=== PATIENT | male | born 1970 | race Caucasian/White ===

== ENCOUNTER → 2016-07-11 | Outpatient (CLI) | payer OTHER ==
[~2016-07-11] MED LIST: ALLEGRA ALLERG180 MG PO; ANASPAZ0.125 MG SL; APAP500 PO; ATIVAN0.5 MG PO; BACLOFEN 10MG T10 M1 PO; BACLOFEN20 MG PO; BACTRIM DS TAB1 EACH PO; BENZOCAINE 10%; BISACODYL SUPP10 MG RE; BUDEPRION SR150 MG PO; CALCIUM ANTACI400 MG PO; CHOLESTYRAMINE P4 GM PO; CLARITIN10 M2 PO; COLACE100 MG; DUONEB 2.5-0.5 M3 ML INH; ENABLEX15 MG PO; FLEET ENEMA118 ML RC; FLEXERIL; FLOMAX PO; FLOMAX0.4 MG PO; FLONASE 0.05%50 MCG NASAL; GABLOFEN IT; HYDRALAZINE 2525 MG PO; HYDROCODONE-AP1 EAC6 PO; INTRATHECAL MED; LEVAQUIN 500 M500 M7 PO; LIPITOR10 MG PO; LOPRESSOR25 PO; MIRALAX17 G1 PO; MIRALAX255 GM PO; MOBIC7.5 MG PO; MS CONTIN15 MG; MSL20MG/ML PO; NEXIUM40 MG PO; NORVASC5 MG PO; NYSTATIN 1100000 U/M; OXYCODONE-ACET1 EACH PO; PRINIVIL20 MG; PSYLLIUM; REGULOID POWDE; RESTORIL30 MG PO; SENNA8.6 MG PO; THICK-IT1 EACH; TOPROL XL25 MG PO; TRAMADOL 50 MG50 MG; TRAMADOL 50 MG50 MG PO; TRIAMCINOLONE A80 G2 TOP; VENTOLIN HFA 1818 GM; VITAMIN A & D OI2 OZ; ZYRTEC10 M2 PO; [UNRECOGNIZED DRUG - CODE] INTRATHECA; [UNRECOGNIZED DRUG - OTHER] IT; [UNRECOGNIZED DRUG - REMARK] TP
--- NOTE | ~2016-07-11 | HPC ---
[address] [address] PAIN MANAGEMENT CONSULTATION Name: TATIANA ROSADOJalen Ann Room #: REG ANDERSON Fitzpatrick#: [id number] Admission: 07/11/16 Attend Phys: Amilcar Velasco DO Discharge: Date of : 66 Report #: [id number] THIS REPORT FOR: //name// CC: [facility] physician/PCP Amilcar Velasco The patient is a 45-year-old gentleman with cerebral palsy, neuropathic pain, intrathecal pump for his spasticity. Last seen in the pain clinic on 04/03/[address] Becker. Pump was refilled and increased 7% at that time. Returns to the pain clinic today for pump refill indicating that he wishes the pump increased. I will increase to another 5%. PROCEDURE: After informed consent was obtained. The patient moved his electric chair in a more recumbent position lowering the back. The skin overlying the pump was cleansed with ChloraPrep. Sterile drape was applied using [employer] refill kit. The pump was accessed, aspirated residual contents was approximately 3 mL. I refilled 40 mL of baclofen 4000 mcg per mL and morphine 600 mcg per mL. The injectate was generally instilled. Frequent aspiration showed easy return. No visual swelling or erythema at the site was noted. Pump was reprogrammed to deliver 5% increase final infusion being 1579.9 mcg of baclofen/day with concurrent increase in morphine. New refill date is 10/15/2016. The patient was discharged in good and stable condition after the needle was removed. The area was cleansed, Band-Aids applied. The patient is requesting that we increase his morphine concentration at next refill. I will refer to Dr. Becker may consider increasing the morphine to 800 mcg per mL. This may enable a little higher concentration of opiate analgesics without increasing the baclofen load. <ELECTRONICALLY SIGNED> By: Amilcar Velasco DO 07/14/16 1228 [id number] [id number] Amilcar Velasco DO /nt
[2016-07-11 14:18] VITALS: BP 132/85
== END | disposition home or self-care (01) ==
LOC: PAIN 07:12
DX: G80.9 Cerebral palsy, unspecified (principal); M79.2 Neuralgia and neuritis, unspecified

== ENCOUNTER → 2016-10-16 | Outpatient (CLI) | payer OTHER ==
[~2016-10-16] MED LIST changes: +IRON325 PO; +LISINOPRIL40 MG PO; +NITROFURANTOIN100 MG PO; +WELLBUTRIN XL150 MG PO
--- NOTE | ~2016-10-16 | HPC ---
[facility] [place] [address] PAIN MANAGEMENT CONSULTATION Name: JUAN ROSADO Marissa Room #: REG ANDERSON Fitzpatrick#: [id number] Admission: 10/16/16 Attend Phys: Amilcar Velasco, DO Discharge: Date of : 66 Report #: [id number] THIS REPORT FOR: //name// CC: JAMAL Velasco The patient is a 45-year-old gentleman, has an intrathecal pump for chronic spasticity. Last pump refill was actually done by myself on 07/11/2016. The patient was requesting that we increase his morphine concentration. I deferred to Dr. Becker who has ordered today's injectate with an increase in the morphine concentration . He presents to pain clinic today for intrathecal pump refill. Current injectate includes baclofen at 4000 mcg per mL and morphine at [address] Becker has ordered the new refill to include baclofen 4000 mcg per mL and morphine increased approximately 40% to 1 mg per mL. Current baclofen infusion is 1579 mcg a day with morphine at 236 mcg a day. With baclofen being the "driving" agent, the new infusate will give him baclofen 1597 mcg a day with morphine increased from 236-395 mcg a day. I did have the discussion with the patient today about ongoing concerns. He notes that he seems to be having diminished efficacy near the end of his refill cycles. I did spend some time reviewing with him the mechanism by which the Medtronic pump works, there is significant compression in the holding chamber and a small pinch roller controlling the rate at which the injectate is infused through the intrathecal catheter. Studies suggest that with increased pressure after the initial refill, the pump may deliver a slight increase overall at beginning of the cycle and as the reservoir tends to empty with less "driving pressure," the infusate rate may decrease somewhat. Indeed, especially with a 40 mL Medtronic pump we do tend to see larger residuals than predicted, hence the pump certainly is delivering a little under what we expect and again, the patient is noting what many patients have noted, that the pump seems to be a little bit less "effect" near the end of the refill cycle. Nonetheless, we refilled the pump today and did make the aforementioned change in the concentration, there is about a 28-hour bridge bolus. The patient should start to get the higher morphine concentration delivered Thursday around 5:30 p.m. I suggested that he contact Dr. Becker next week if he feels that we need to increase or lower the pump. I did also suggest that he use oral baclofen, perhaps last week or 2 prior to the next pump refill. REFILL PROCEDURE: After written informed consent was obtained, the patient lowered the back of his electric chair, the pump in the left lower quadrant was identified. Skin overlying was cleansed. Of note, there is a little concerning thinning of the skin over the superior lateral aspect of the pocket. There is no skin breakdown noted. Skin wheal with Xylocaine was raised. Using a Medtronic refill kit, the pump was accessed, aspirated residual contents. Again, expected residual volume was 2.3 mL, I withdrew about 4 mL. Pump was then refilled with 40 mL of new injectate containing baclofen 4000 mcg per mL [address] [address] PAIN MANAGEMENT CONSULTATION Name: JUAN ROSADO Room #: REG ANDERSON Fitzpatrick#: [id number] Admission: 10/16/16 Attend Phys: Amilcar Velasco DO Discharge: Date of : 66 Report #: [id number] and morphine 1 mg per mL. Frequent aspiration showed easy refill. Visual inspection showed no swelling or erythema at the site. The patient reported no change in sensation. Needle was removed, the area was cleansed, and Band-Aid was applied. New rate was set with baclofen continuing at 1597.9 mcg a day and morphine increased from 236.98-395 mcg a day. New reservoir date is 01/20/2017. Discharged in good and stable condition. <ELECTRONICALLY SIGNED> By: Amilcar Velasco DO 10/17/16 1308 0755 1227 Amilcar Velasco DO /nt
[2016-10-16 13:01] VITALS: BP 134/81
== END | disposition home or self-care (01) ==
LOC: PAIN 07:30
DX: G89.29 Other chronic pain (principal); M25.673 Stiffness of unspecified ankle, not elsewhere classified

== ENCOUNTER → 2017-01-19 | Outpatient (CLI) | payer OTHER ==
--- NOTE | ~2017-01-19 | HPC ---
[facility] [address] [place] [address] PAIN MANAGEMENT CONSULTATION Name: TATIANA ROSADOJalen Ann Room #: REG ANDERSON Fitzpatrick#: [id number] Admission: 01/19/17 Attend Phys: Amilcar Velasco DO Discharge: Date of : 66 Report #: [id number] THIS REPORT FOR: //name// CC: JAMAL Velasco The patient is very pleasant 46-year-old gentleman being treated for chronic spasticity status post spinal cord trauma in the distant past. I actually refilled his pump last time 10/16/2016. Returns to pain clinic today for intrathecal pump refill. He seems to be doing well per the patient. Current pump infusion is baclofen 1579.9 mcg a day and morphine fairly low dose 0.395 mg today. PROCEDURE NOTE: After written informed consent was obtained, the patient lowered the back of his electric chair. Skin overlying the pump in the left lower quadrant was cleansed with ChloraPrep. Using a [employer] refill kit and sterile drape, I access the pump, aspirated approximately 4 mL of injectate and refilled 40 mL of new injectate containing baclofen 4000 mcg per mL and morphine 1 mg per mL. Frequent aspiration showed good return. The site remained unremarkable. No swelling or erythema was noted at the pocket. Needle was removed. The area was cleansed, Band-Aids applied. The pump was reprogrammed to deliver the current rate without change, new refill date is 04/25/2017. We will have the patient follow up with Dr. Kali Becker at that time. <ELECTRONICALLY SIGNED> By: Amilcar Velasco DO 01/21/17 0801 1215 1305 Amilcar Velasco DO /nt
== END ==
LOC: PAIN 06:41
DX: Z45.1 Encounter for adjustment and management of infusion pump (principal); G80.1 Spastic diplegic cerebral palsy; F41.8 Other specified anxiety disorders; Z88.0 Allergy status to penicillin; Z88.8 Allergy status to other drugs, medicaments and biological substances; Z79.899 Other long term (current) drug therapy

== ENCOUNTER → 2017-04-23 | Outpatient (CLI) | payer OTHER ==
[~2017-04-23] MED LIST changes: +ALENDRONATE SOD70 MG PO
--- NOTE | ~2017-04-23 | HPC ---
[facility] [address] [place] [address] PAIN MANAGEMENT CONSULTATION Name: JUAN ROSADO Room #: REG [facility] Amari#: [id number] Admission: 04/23/17 Attend Phys: Amilcar Velasco DO Discharge: Date of : 66 Report #: [id number] THIS REPORT FOR: //name// CC: JAMAL Velasco DATE OF SERVICE: 04/23/2017 Followup visit for management of intrathecal infusion pump with refill and reprogramming session. The patient is here today with caregiver. He lives in a penitentiary with 1 other person. We talked about his function and his activity and he is really doing quite well. He was last seen in the pain clinic by Dr. Velasco who refilled his pump in October. We have about 150 days in between refills. His spasticity is well controlled. The pump seems to be functioning adequately. It is 59 months SUNG. There was some concern earlier, but I think we are doing fine now. The reservoir today was consistent with the medication that was withdrawn. PHYSICAL EXAMINATION: He is in his wheelchair, has new earring! , we joked while he was in the office. He is able to communicate by blinking and answering yes or no and also has a communication board, but we did not use it today. Spasticity is reasonably well controlled. His blood pressure 140/92, heart rate 70. His BMI was not taken today since we did not get him out of his chair and his pump was refilled while he was in his chair. IMPRESSION: 1. Spasticity related to cerebral palsy. 2. Management of intrathecal infusion pump with refill and reprogramming. 3. Hypertension. 4. Quadriplegia due to cerebral palsy. PROCEDURE: Refill and reprogramming of intrathecal infusion. This patient was placed in a lawn chair position in his wheelchair. I was able to access the pump in that position. Skin was prepped with ChloraPrep. Skin anesthetized. A 22-gauge non-coring needle advanced in the pump. Old medication removed and discarded. We expected 4 mL and received exactly that back in the syringe. This was discarded appropriately. The pump was then refilled with baclofen and morphine combination reprogrammed to provide a daily dose of baclofen 1580 mcg per day, morphine 0.4 mg per day. Low reservoir alarm date is 93 days on 07/25/2017. [address] [address] PAIN MANAGEMENT CONSULTATION Name: RANJANADRIANNEInezJUAN Room #: REG CLJalen Fitzpatrick#: [id number] Admission: 04/23/17 Attend Phys: Amilcar Velasco DO Discharge: Date of : 66 Report #: [id number] Followup visit is planned at that time, no other changes in medication. <ELECTRONICALLY SIGNED> By: Kali Becker MD 04/29/17 1551 1620 0501 Kali Becker MD /estefany
[2017-04-23 11:45] VITALS: BP 140/92
== END ==
LOC: PAIN 06:42
DX: Z45.1 Encounter for adjustment and management of infusion pump (principal); G80.1 Spastic diplegic cerebral palsy; G80.0 Spastic quadriplegic cerebral palsy; I10 Essential (primary) hypertension; Z88.0 Allergy status to penicillin; Z88.1 Allergy status to other antibiotic agents; Z79.899 Other long term (current) drug therapy

== ENCOUNTER → 2017-10-26 | Outpatient (CLI) | payer OTHER ==
[~2017-10-26] MED LIST changes: -APAP500 PO; +KEFLEX500 M1 PO; +NORCO 10-325 T1 EACH PO; +PROZAC20 MG PO; +TYLENOL EXTRA500 MG PO
--- NOTE | ~2017-10-26 | HPC ---
[facility] [address] [place] [address] PAIN MANAGEMENT CONSULTATION Name: JUAN ROSADO Room #: REG TOSHAJalen Fitzpatrick#: [id number] Admission: 10/26/17 Attend Phys: Kali Becker MD Discharge: Date of : 66 Report #: [id number] THIS REPORT FOR: //name// CC: JAMAL Becker DATE OF SERVICE: 10/26/2017 Followup visit for management of intrathecal infusion pump providing baclofen and low-dose morphine. The patient is here today for refill of his intrathecal pump. Last refill was in April. Since he was last here, he has had an aspiration pneumonia and has been in the hospital for recovery. At that time, felt it was no longer safe for him to take oral nutrition and feeding gastrostomy was placed. He also has a suprapubic catheter also placed during that hospitalization. He seems to have recovered nicely, has no problems. He has had no difficulty with breathing at this time. The patient and I communicated by nods and eye blink. He also has a communication board, although I did not use it with him today. His caregiver is with him today who answers most of the questions. She says he has been doing reasonably well. No adjustment in intrathecal medications will be performed today. MEDICATIONS: All medications on the electronic medical record were reviewed and reconciled. Please refer to that electronic documentation. ALLERGIES: Reviewed as well. Interval change noted above. Pain score today is a 5, mostly in the right hip. It has improved with the use of his pump and he is not currently receiving any oral medications. PHYSICAL EXAMINATION: He is pleasant, nonverbal gentleman with cerebral palsy. He is in a wheelchair. He is able to control the wheelchair independently. His blood pressure is 125/80, heart rate is 107. Respirations are 14. BMI was not checked. Spasticity is modest. He has contractures noted in the lower extremities and upper extremities. IMPRESSION: 1. Spasticity secondary to cerebral palsy. 2. Management of intrathecal infusion pump infusing baclofen and morphine. 3. Hypertension. [facility] [address] [place] [address] PAIN MANAGEMENT CONSULTATION Name: ALONZOJUAN Room #: REG [facility] Amari#: [id number] Admission: 10/26/17 Attend Phys: Kali Becker MD Discharge: Date of : 66 Report #: [id number] PROCEDURE: Refill and reprogram of intrathecal infusion pump. Skin was prepped with ChloraPrep and skin was anesthetized. A 22-guage Tuohy epidural needle advanced into the pump. Old medication removed and discarded. Expected volume at 3 mL, retrieved volume 5 mL. Pump was refilled with baclofen and morphine and reprogramming at baclofen 1580 mcg, morphine 0.39 mg per day. His SUNG is 53 months, reservoir volume 39.5 and his next low reservoir alarm date is 01/28/2018. Programming information was double checked by myself and the nurse. Program copy was given to the patient's caregiver and he was discharged in good condition. Followup visit is scheduled for January. By: 1221 0125 Kali Becker MD /nt
[2017-10-26 09:59] VITALS: BP 140/78
== END | disposition home or self-care (01) ==
LOC: PAIN 07-23 06:55
DX: Z45.1 Encounter for adjustment and management of infusion pump (principal); G80.1 Spastic diplegic cerebral palsy; I10 Essential (primary) hypertension; Z98.890 Other specified postprocedural states; Z88.0 Allergy status to penicillin; Z88.8 Allergy status to other drugs, medicaments and biological substances; Z79.891 Long term (current) use of opiate analgesic; Z79.899 Other long term (current) drug therapy

== ENCOUNTER → 2018-01-25 | Outpatient (CLI) | payer OTHER ==
--- NOTE | ~2018-01-25 | HPC ---
[facility] [address] [place] [address] PAIN MANAGEMENT CONSULTATION Name: JUAN ROSADO Room #: REG [facility]#: [id number] Admission: 01/25/18 Attend Phys: Kali Becker MD Discharge: Date of : 66 Report #: [id number] THIS REPORT FOR: //name// CC: JAMAL DELGADO MD Physician staff Kali Becker DATE OF SERVICE: 01/25/2018 Followup visit for refill of intrathecal infusion pump. The patient has cerebral palsy and has an intrathecal pump providing baclofen and morphine. He is here today for routine refill of his intrathecal pump. The summer has gone well. He has been able to get outside a little bit with his electric chair. He and I by nods, eye blink, and the pump was refilled without challenge or complication. He reports that he has pain mostly in the right hip. I may increase his intrathecal morphine slightly at next visit. PHYSICAL EXAMINATION: GENERAL: Pleasant, nonverbal gentleman with cerebral palsy, in a wheelchair. He is able to control the chair with his right hand. VITAL SIGNS: His blood pressure today is 120/69, heart rate 93. BMI was not listed. IMPRESSION: 1. Cerebral palsy with spasticity. 2. Intrathecal infusion pump for baclofen and morphine. PROCEDURE: Skin was prepped with ChloraPrep. Skin anesthetized. A 22-gauge non-coring needle advanced in the pump. Old medication removed and discarded. Expected volume was 3, we got 6 mL. This is a little high for even a 40 mL pump. Pump was refilled with baclofen and morphine and reprogrammed with no change. His daily baclofen dose is high at 1580 mcg per day and his morphine dose at 0.4. Followup visit will be scheduled in the Pain Clinic in about 3 months. By: 1522 0502 Kali Becker MD /nt
[2018-01-25 11:15] VITALS: BP 120/69
== END | disposition home or self-care (01) ==
LOC: PAIN 07:45
DX: Z45.1 Encounter for adjustment and management of infusion pump (principal); G80.1 Spastic diplegic cerebral palsy; Z79.891 Long term (current) use of opiate analgesic; Z88.0 Allergy status to penicillin; Z88.8 Allergy status to other drugs, medicaments and biological substances; Z79.899 Other long term (current) drug therapy

== ENCOUNTER → 2018-04-26 | Outpatient (CLI) | payer OTHER ==
--- NOTE | ~2018-04-26 | HPC ---
[facility] [address] [place] [address] PAIN MANAGEMENT CONSULTATION Name: JUAN ROSADO [facility] [id number] Admission: 04/26/18 Attend Phys: Kali Becker MD Discharge: Date of : 66 Report #: [id number] THIS REPORT FOR: //name// CC: JAMAL Torres Physician staff Kali Becker DATE OF SERVICE: 04/26/2018 Followup visit for refill of intrathecal infusion pump. The patient is here today with caregiver. He drove in through the snow from [place] to have his intrathecal pump refill that has a combination of baclofen and morphine. He is doing okay, although he has been a bit drowsy. He has been on the same dose of medication in his pump as far back as I can see. In 2013, we may have increased him a bit from 1300 mcg of baclofen up to 14. He is on very low dose morphine at less than 0.5 mg a day. He is also accommodated to those doses as well. He is nonverbal, in a wheelchair and has severe spasticity. He communicates by using a board, which allows him to write sentences. We had a short discussion today about the catheter in his back. PQRS review shows him to be pleasant, nonverbal 47-year-old with severe cerebral palsy. He has marked contractions. He is confined to his wheelchair. He complains of joint pain and surely has arthritic deformities throughout multiple joints with his contractures. He is on no blood thinners. He does not use tobacco or alcohol. He is not on an opioid agreement. He is not a fall risk and has a fulltime caregiver. All medications have been reviewed and reconciled. Some of his drowsiness may be due to the increases in temazepam and cyclobenzaprine that have been given recently to him to help with sleep. Blood pressure is 125/65 and heart rate 80. IMPRESSION: 1. Cerebral palsy with marked spasticity and contractions. The patient is wheelchair bound and nonverbal. 2. Chronic intractable pain. 3. Management with refill and reprogramming of intrathecal infusion pump. PROCEDURE: Skin was prepped with ChloraPrep and anesthetized. A 22-gauge non-coring needle advanced into the pump, old medication removed and discarded per protocol. Medication anticipated was 3.6 and we retrieved 5 mL and not [address] [address] PAIN MANAGEMENT CONSULTATION Name: JUAN ROSADO Room #: REG CLJalen Fitzpatrick#: [id number] Admission: 04/26/18 Attend Phys: Kali Becker MD Discharge: Date of : 66 Report #: [id number] unusual for a 40 mL pump. The pump was then refilled with a combination of baclofen and morphine and reprogramming session performed daily dose of baclofen 1580 mcg per day, morphine 0.4 mg per day. Refill interval is about 3 months and we will see him back around 's 2018. No oral medications were ordered. No other changes were made. Completed paperwork for the nursing facility regarding his pump refill. By: [id number] Kali Becker MD /nt
[2018-04-26 12:03] VITALS: BP 123/73
== END | disposition home or self-care (01) ==
LOC: PAIN 07:13
DX: Z45.1 Encounter for adjustment and management of infusion pump (principal); G80.1 Spastic diplegic cerebral palsy; G89.29 Other chronic pain; M19.90 Unspecified osteoarthritis, unspecified site; J45.909 Unspecified asthma, uncomplicated; E78.5 Hyperlipidemia, unspecified; Z79.891 Long term (current) use of opiate analgesic; Z88.0 Allergy status to penicillin; Z88.8 Allergy status to other drugs, medicaments and biological substances; Z79.899 Other long term (current) drug therapy; F41.9 Anxiety disorder, unspecified; Z87.19 Personal history of other diseases of the digestive system

== ENCOUNTER → 2018-07-29 | Outpatient (CLI) | payer OTHER ==
[~2018-07-29] MED LIST changes: +TRAZODONE HCL50 MG PO
--- NOTE | ~2018-07-29 | HPC ---
[facility] [address] [place] [address] PAIN MANAGEMENT CONSULTATION Name: JUAN ROSADO Room #: REG [facility].#: [id number] Admission: 07/29/18 Attend Phys: Kali Becker MD Discharge: Date of : 66 Report #: [id number] THIS REPORT FOR: //name// CC: JAMAL DELGADO MD Physician staff Kali Becker DATE OF SERVICE: 07/29/2018 REASON FOR VISIT: Followup visit for management of intrathecal infusion pump for spasticity and chronic pain and cerebral palsy. HISTORY OF PRESENT ILLNESS: The patient is here today for refill of his intrathecal infusion pump. He also complains that he is having significant pain in his knees. He has severe cerebral palsy, is nonverbal. He spends his days in the wheelchair. The legs have become contracted due to his limited mobility and spasticity in any movement of the knees causes a sharp shooting pain. He is already taking intrathecal morphine and I felt today that he would benefit from cortisone injections. We will perform those with his agreement today. I can perform these, I think safely, without fluoroscopic guidance and we will use a small needle to decrease any risk of bleeding. I reviewed all medications. He is on no blood thinners. He is arthritic throughout his extremities with contractions. He is a fall risk and requires a caregiver time lock expert to help with mobility. He is on no oral opioid medications. PHYSICAL EXAMINATION: GENERAL: He is pleasant, alert and oriented. He communicates by blinking his eyes and answers to questions and has a communication board for more lengthy nonverbal communication. VITAL SIGNS: His weight is 156 pounds. His blood pressure 136/89, heart rate 88 and respirations 18. MUSCULOSKELETAL: Spasticity and contractures noted in the upper and lower extremities. He uses his chin to control his wheelchair and can move his chair nearly any direction with good control. Does not move his arms or his legs. Tenderness is noted bilaterally in each knee with complaints of pain with pressure below the patella. He scores his pain as 6-7. IMPRESSION: 1. Cerebral palsy with spasticity and contractions. 2. Arthritic pain, bilateral knee. 3. Management of intrathecal pump with refill and reprogramming. PROCEDURE #1: Refill and reprogramming. Skin was prepped with ChloraPrep. Skin anesthetized and a 22-gauge non-coring needle advanced in the pump. [facility] [address] [place] [address] PAIN MANAGEMENT CONSULTATION Name: JUAN ROSADO Room #: REG ANDERSON Fitzpatrick#: [id number] Admission: 07/29/18 Attend Phys: Kali Becker MD Discharge: Date of : 66 Report #: [id number] medication removed and discarded. Pump refilled with baclofen 4000, morphine 1.5 and reprogrammed. His daily dose of baclofen is high at 1500 mcg. Morphine is at 0.4 mg per day. I will increase this slightly for him in next visit to aid with pain in his knees. PROCEDURE #2: Bilateral knee injections with triamcinolone and bupivacaine. Skin was prepped first on the left knee and using the lateral approach and subpatellar, I advanced a 27-gauge needle gently into the knee joint without any encounter of bone or cartilage. After negative aspiration, gently injected a total of 3 mL of 0.5% bupivacaine mixed with 40 mg of triamcinolone. The procedure was then repeated on the right. He tolerated the procedure well and was observed for a short time and discharged to his care with his caregiver back to his home. There were no complications with any of the procedures provided today. I have seen him back in the pain clinic in about 5 months. By: [id number] Kali Becker MD /nt
[2018-07-29 12:36] VITALS: BP 136/89
--- NOTE | 2018-07-29 12:54 | NUR ---
Pain Clinic Assessment: 1. History of Osteoarthritis: Left Lower Extremity Left Upper Extremity Right Lower Extremity Right Upper Extremity History of Rheumatoid Arthritis: 2. Height: ft. in. cm. Weight: 156.0 lb. oz. 70.761 kg. Patient's BMI: 3. Vital Signs: BP: 136/89 Pulse: 88 Resp: 12 Temp: 02 Sat: 100 ECG Mon: 4. Pain Intensity: 7 5. Fall Risk: Dizziness: N Needs help standing or walking: Y Fallen in the last 3 months: N Fall risk comments: 6. Patient on Blood Thinner: None 7. History of Hypertension: Y 8. Opioid Therapy greater than 6 weeks: N Opiate Contract Signed: 9. Risk Assessment Tool Provided: 10. Functional Assessment Tool: 11. Recreational Drug Use: Never Drug Type: Tobacco Use: Never Smoker Tobacco Type: Amount or Packs/day: How Many Years: Alcohol Use: No Frequency: Quant:
== END | disposition home or self-care (01) ==
LOC: PAIN 07-22 10:34
DX: M17.0 Bilateral primary osteoarthritis of knee (principal); Z45.1 Encounter for adjustment and management of infusion pump; G89.29 Other chronic pain; G80.1 Spastic diplegic cerebral palsy; Z79.891 Long term (current) use of opiate analgesic; Z88.0 Allergy status to penicillin; Z88.8 Allergy status to other drugs, medicaments and biological substances; Z79.899 Other long term (current) drug therapy

== ENCOUNTER → 2018-10-28 | Outpatient (CLI) | payer OTHER ==
--- NOTE | ~2018-10-28 | HPC ---
[facility] [address] [place] [address] PAIN MANAGEMENT CONSULTATION Name: JUAN ROSADO Room #: REG ANDERSON Fitzpatrick#: [id number] Admission: 10/28/18 ������������������ Attend Phys: Kali Becker MD Discharge: ������������������ Date of : 66 Report #: [id number] THIS REPORT FOR: //name// CC: JAMAL DELGADO Physician staff Kali Becker DATE OF SERVICE: 10/28/2018 Followup visit for management of intrathecal infusion pump. The patient returns to pain clinic today for refill and reprogramming with intrathecal infusion pump. He was apparently hospitalized up in [place], [place]. It sounds to me like he may have had some urosepsis. He was poorly responsive and was having fluctuations in his blood pressure. His caregiver described the events to me today. Has often happened the intrathecal pump was either implicated or felt to be potentiating some of his symptoms and they decreased his intrathecal infusion pump dramatically. The patient is on a high dose of medication, which we have maintained steadily without adjustment. Because of his ability to tolerate the medication and because of this forced change, we have been able to then assess the medication drop now over about one month. He is doing fine. His baclofen dose is now down to 885 mcg per day with morphine dose 0.2 mg per day. He does not seem to be much worse for the dramatic drop. It is only 0.2 mg difference in morphine, but it is quite a bit of change in the baclofen. I am actually glad to see that the dose has been well tolerated and I think we will keep him at that level today. On PQRS, this is a very pleasant 47-year-old with severe and debilitating cerebral palsy. He is nonverbal. He is in a wheelchair. He has severe diffuse joint contractions and arthritis. His BMI is felt to be under 20, which is normal for him. We did not weigh him in his wheelchair today. His pain intensity score is 4 today. Communicates with eye blinking with a board. He needs all help with transfers. He is a fall risk only from the standpoint of if he is handled without care. He is on no blood thinners. He has a history of hypertension. He is on no opioids other than that in his pump. He denies use of tobacco or alcohol. PHYSICAL EXAMINATION: He is pleasant, nonverbal gentleman with cerebral palsy. His blood pressure 120/78, heart rate 92. He has diffuse contractures. Pump is in the left lower abdomen. IMPRESSION: 1. Cerebral palsy with severe contractures and chronic intractable pain. [address] [address] PAIN MANAGEMENT CONSULTATION Name: JUAN ROSADO [id number] Admission: 10/28/18 ������������������ Attend Phys: Kali Becker MD Discharge: ������������������ Date of : 66 Report #: [id number] 2. Management of intrathecal infusion pump with refill and reprogramming. 3. Arthritic pain, bilateral knees. He has had injections, which he felt were not so helpful. PROCEDURE: Refill and reprogramming of intrathecal infusion pump. Skin was prepped with ChloraPrep. Skin anesthetized and a 22-gauge non-coring needle advanced into the pump. Old medication removed and discarded per protocol. Pump refilled with baclofen and morphine and reprogrammed. With the current concentration and his new programming, he has about six months of medication in his pump. His daily dose on discharge: Baclofen 885 mcg, morphine mg per day. I did, in the presence of the patient, fill out paperwork for [facility]. This I attached to the programming information, which I provided for the patient. [id number] time is 25 minutes including consultation with nursing staff in addition to the refill of his intrathecal infusion pump. ��������������������������������������������� ���������������������������������������� By: ��������������������������������������������� [id number] [id number] Kali Becker MD /nt
[2018-10-28 14:18] VITALS: BP 120/78
--- NOTE | 2018-10-28 15:06 | NUR ---
Pain Clinic Assessment: 1. History of Osteoarthritis: Left Lower Extremity Left Upper Extremity Right Lower Extremity Right Upper Extremity History of Rheumatoid Arthritis: 2. Height: ft. in. cm. Weight: 125.0 lb. oz. 56.700 kg. Patient's BMI: 3. Vital Signs: BP: 120/78 Pulse: 92 Resp: 12 Temp: 02 Sat: 100 ECG Mon: 4. Pain Intensity: 4 5. Fall Risk: Dizziness: N Needs help standing or walking: Y Fallen in the last 3 months: N Fall risk comments: 6. Patient on Blood Thinner: None 7. History of Hypertension: Y 8. Opioid Therapy greater than 6 weeks: N Opiate Contract Signed: 9. Risk Assessment Tool Provided: 10. Functional Assessment Tool: 11. Recreational Drug Use: Never Drug Type: Tobacco Use: Never Smoker Tobacco Type: Amount or Packs/day: How Many Years: Alcohol Use: No Frequency: Quant:
== END | disposition home or self-care (01) ==
LOC: PAIN 06:59
DX: Z45.1 Encounter for adjustment and management of infusion pump (principal); M19.90 Unspecified osteoarthritis, unspecified site; I10 Essential (primary) hypertension; G89.29 Other chronic pain; G80.9 Cerebral palsy, unspecified; Z88.0 Allergy status to penicillin; Z88.8 Allergy status to other drugs, medicaments and biological substances; Z79.899 Other long term (current) drug therapy; Z98.890 Other specified postprocedural states

== ENCOUNTER → 2019-04-14 | Outpatient (CLI) | payer OTHER ==
--- NOTE | ~2019-04-14 | HPC ---
[facility] [address] [address] PAIN MANAGEMENT CONSULTATION Name: JUAN ROSADO Room #: REG ANDERSNO Amari#: [id number] Admission: 04/14/19 Attend Phys: Kali Becker MD Discharge: Date of : 66 Report #: [id number] THIS REPORT FOR: //name// CC: JAMAL DELGADO Physician staff Kali Becker DATE OF SERVICE: 04/14/2019 Followup visit for management of intrathecal infusion pump for spasticity related to cerebral palsy. The patient returns to pain clinic today for refill of his baclofen pump, which also includes morphine. It had been dropped dramatically in micrograms during the hospitalization. We left it at the 50% level at his last refill. He would like to have an adjustment upwards today. He feels that his pain and spasticity are no longer controlled as effectively as before. We will avoid adjusting it too aggressively. PQRS REVIEW: 1. Positive for diffuse arthropathy and arthritis. He is in multiple contractures throughout his body 2. Osteoarthritis involving almost all joints in the upper and lower extremities. 3. BMI is less than 20. 4. Blood pressure 139/74, heart rate is 98. 5. Pain intensity 7/10. 6. He is a fall risk and needs help with all movement. 7. No blood thinning medication. 8. He has a history of hypertension, under treatment. 9. He is on no opioid agreement. 10. Low risk for addiction. 11. Functional assessment score is not obtained. 12. He denies use of tobacco or alcohol. PHYSICAL EXAMINATION: GENERAL: Pleasant gentleman. He is aphasic. He is in a wheelchair. He communicates with eye blinking and has a nice sense of humor. VITAL SIGNS: As noted. Contractions are noted throughout. Spasticity is significant in the lower extremities with difficulty with leg extension. 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 PROCEDURE: Refill and reprogramming intrathecal infusion pump. Skin prepped with ChloraPrep. A 22-gauge non-core needle advanced in the pump. Old medication removed and discarded. Pump refilled under protocol. Old medication [address] [address] PAIN MANAGEMENT CONSULTATION Name: ALONZOJUAN L Room #: REG [facility] Amari#: [id number] Admission: 04/14/19 Attend Phys: Kali Becker MD Discharge: Date of : 66 Report #: [id number] was discarded under protocol. Refilling of the intrathecal infusion pump was uncomplicated. Pump was then reprogrammed and the programming information was checked by myself and the nurse. Copy was placed in the chart and a copy given to the patient. There were no complications. Followup visit planned in 2-4 months. By: [id number] Kali Becker MD /nt
[2019-04-14 14:04] VITALS: BP 139/74
--- NOTE | 2019-04-14 14:36 | NUR ---
Pain Clinic Assessment: 1. History of Osteoarthritis: Left Lower Extremity Left Upper Extremity Right Lower Extremity Right Upper Extremity History of Rheumatoid Arthritis: 2. Height: ft. in. cm. Weight: 125.0 lb. oz. 56.700 kg. Patient's BMI: 3. Vital Signs: BP: 139/74 Pulse: 98 Resp: 14 Temp: 02 Sat: 100 ECG Mon: 4. Pain Intensity: 7 5. Fall Risk: Dizziness: N Needs help standing or walking: Y Fallen in the last 3 months: N Fall risk comments: 6. Patient on Blood Thinner: None 7. History of Hypertension: Y 8. Opioid Therapy greater than 6 weeks: N Opiate Contract Signed: 9. Risk Assessment Tool Provided: 10. Functional Assessment Tool: 11. Recreational Drug Use: Never Drug Type: Tobacco Use: Never Smoker Tobacco Type: Amount or Packs/day: How Many Years: Alcohol Use: No Frequency: Quant:
== END | disposition home or self-care (01) ==
LOC: PAIN 07:08
DX: Z45.2 Encounter for adjustment and management of vascular access device (principal); G80.1 Spastic diplegic cerebral palsy; M19.90 Unspecified osteoarthritis, unspecified site; Z98.890 Other specified postprocedural states; Z88.0 Allergy status to penicillin; Z88.8 Allergy status to other drugs, medicaments and biological substances; Z79.899 Other long term (current) drug therapy

== ENCOUNTER → 2019-09-22 | Outpatient (CLI) | payer OTHER | END | disposition home or self-care (01) | LOC: PAIN 08:31 | DX: Z45.1 Encounter for adjustment and management of infusion pump (principal); G80.9 Cerebral palsy, unspecified; I10 Essential (primary) hypertension; Z79.891 Long term (current) use of opiate analgesic; Z98.890 Other specified postprocedural states; Z79.899 Other long term (current) drug therapy; Z88.0 Allergy status to penicillin; Z88.8 Allergy status to other drugs, medicaments and biological substances ==

== ENCOUNTER → 2020-02-27 | Outpatient (CLI) | payer OTHER ==
--- NOTE | ~2020-02-27 | HPC ---
[facility] [place] [address] PAIN MANAGEMENT CONSULTATION Name: JUAN ROSADO Room #: REG ANDERSON Jones.#: [id number] Admission: 02/27/20 Attend Phys: Kali Becker MD Discharge: Date of : 66 Report #: [id number] THIS REPORT FOR: cc: JAMAL DELGADO MD Physician not on staff Kali Becker MD ~ CC: JAMAL DELGADO MD Physician staff Kali Becker DATE OF SERVICE: 02/27/2020 Followup visit for refill of intrathecal infusion pump. The patient is here today for refill of baclofen pump. He receives baclofen for treatment of spasticity from cerebral palsy. His last refill was on 09/22/2019. He would like a slight increase due to increase in spasticity. The patient is here today with his caregiver who drove him in from [facility]. PQRS review by the nurse and myself is noted. He has contractions and a history of osteoarthritis. We did not measure his BMI today, once again he is wheelchair bound, somewhere in the range of 20. Blood pressure 121/74, heart rate 97, respirations 14, O2 sat is 100%. He is wearing a mask. He is not on a blood thinner, does not have a history of hypertension. He is not on an opioid agreement. Denies use of tobacco or alcohol. He is wheelchair bound. IMPRESSION: 1. Spasticity due to cerebral palsy. 2. Intrathecal pump, infusing baclofen. PROCEDURE: Refill and reprogramming of intrathecal infusion pump. Skin was prepped with ChloraPrep. A 22-gauge non-coring needle advanced in pump. Old medication removed and discarded. Pump refilled with a combination of baclofen and we do have a small amount of morphine. Reprogramming session was performed, increasing the dose by 3.7%. Daily dose will be baclofen 958 mcg, morphine 0.23 mg. Reprogramming was checked by myself and the nurse [place] [address] PAIN MANAGEMENT CONSULTATION Name: ALONZOJUAN L Room #: REG [facility]#: [id number] Admission: 02/27/20 Attend Phys: Kali Becker MD Discharge: Date of : 66 Report #: [id number] patient and his caregiver. Plan to see him back in the pain clinic in 4-6 months. By: [id number] Kali Becker MD /nt
[2020-02-27 13:13] VITALS: BP 121/74
--- NOTE | 2020-02-27 13:42 | NUR ---
Pain Clinic Assessment: 1. History of Osteoarthritis: Left Lower Extremity Left Upper Extremity Right Lower Extremity Right Upper Extremity History of Rheumatoid Arthritis: 2. Height: ft. in. cm. Weight: lb. oz. kg. Patient's BMI: 3. Vital Signs: BP: 121/74 Pulse: 97 Resp: 12 Temp: 02 Sat: 98 ECG Mon: 4. Pain Intensity: 8-10 5. Fall Risk: Dizziness: N Needs help standing or walking: Y Fallen in the last 3 months: N Fall risk comments: 6. Patient on Blood Thinner: None 7. History of Hypertension: Y 8. Opioid Therapy greater than 6 weeks: N Opiate Contract Signed: 9. Risk Assessment Tool Provided: 10. Functional Assessment Tool: 11. Recreational Drug Use: Never Drug Type: Tobacco Use: Never Smoker Tobacco Type: Amount or Packs/day: How Many Years: Alcohol Use: No Frequency: Quant:
== END | disposition home or self-care (01) ==
LOC: PAIN 06:59
PROVIDERS: ATTEND Anesthesiology Pain Medicine
DX: Z45.1 Encounter for adjustment and management of infusion pump (principal); R25.2 Cramp and spasm; G80.9 Cerebral palsy, unspecified; Z98.890 Other specified postprocedural states; Z79.899 Other long term (current) drug therapy; Z79.891 Long term (current) use of opiate analgesic